=== PATIENT | male | born 1985 | race Caucasian/White ===

== ENCOUNTER 2020-03-01 19:14 | Emergency (ER) | payer OTHER ==
[~2020-03-01] VITALS: Ht 175.3 cm; Wt 73.5 kg
[2020-03-01] MEDS ORDERED: KEPPRA1000 MG PO (23:39)
[2020-03-01] MEDS ORDERED: DECADRON4 MG PO (23:39)
== END 2020-03-02 00:05 | disposition home or self-care (01) ==
LOC: ED 19:14
DX: R56.9 Unspecified convulsions (principal); D49.6 Neoplasm of unspecified behavior of brain; F17.200 Nicotine dependence, unspecified, uncomplicated; Z88.2 Allergy status to sulfonamides
CPT/HCPCS: 70450; 70470; 71260; 74177; 80053; 85025; 99285-25; J1100; J1953; Q9967